=== PATIENT | male | born 1970 | race Caucasian/White ===

== ENCOUNTER 2023-09-09 21:47 | Emergency (ER) | payer OTHER ==
[~2023-09-09] VITALS: Ht 154.9 cm; Wt 85.3 kg
[2023-09-09 21:55] VITALS: BP 115/77; PULSE 90; RESP 16; TEMP 97.9; O2SAT 96
[2023-09-09 23:48] VITALS: O2SAT 96
[2023-09-10] MEDS ORDERED: NAPR-337 PO (00:23)
[2023-09-10] MEDS: KETOROLAC 30 MG/ML VIAL IM ONE (00:37)
== END 2023-09-10 00:37 | disposition home or self-care (01) ==
LOC: MED 21:47 → EDSEX 21:47 → MED 09-10 00:37
DX: R07.89 Other chest pain (principal); Z79.899 Other long term (current) drug therapy
CPT/HCPCS: 71045; 96372; 99283; J1885